=== PATIENT | male | born 1965 | race Hispanic/Latino ===

== ENCOUNTER 2017-10-18 02:11 | Observation (INO) | payer OTHER ==
[2017-10-18] MEDS ORDERED: Aspirin 81 MG Tab.Chew PO ONE (02:16)
--- NOTE | 2017-10-18 02:17 | EDM.PDOC ---
ED HPI GENERAL MEDICAL PROBLEM - General Stated Complaint: SHORTNESS OF BREATH Time Seen by Provider: 10/18/17 02:16 Source of Information: Reports: Patient - History of Present Illness INITIAL COMMENTS - FREE TEXT/NARRATIVE: HISTORY AND PHYSICAL: History of present illness: [Patient presents with exertional shortness of breath only able to ambulate for 20 feet without becoming significantly short of breath he also complains of orthopnea is in no distress no pursed lip breathing No fever nausea vomiting chills sweats no chest pain headache dizziness or palpitation no bowel or urine symptoms Denies chronic medications illness or disease ] Review of systems: As per history of present illness and below otherwise all systems reviewed and negative. Past medical history: As per history of present illness and as reviewed below otherwise noncontributory. Surgical history: As per history of present illness and as reviewed below otherwise noncontributory. Social history: No reported history of drug or alcohol abuse. Family history: As per history of present illness and as reviewed below otherwise noncontributory. Physical exam: HEENT: Atraumatic, normocephalic, pupils reactive, negative for conjunctival pallor or scleral icterus, mucous membranes moist, throat clear, neck supple, nontender, trachea midline. Lungs: Clear to auscultation, breath sounds equal bilaterally, chest nontender. Heart: S1S2, regular, negative for clicks, rubs, or JVD. Abdomen: Soft, nondistended, nontender. Negative for masses or hepatosplenomegaly. Negative for costovertebral tenderness. Pelvis: Stable nontender. Genitourinary: Deferred. Rectal: Deferred. Extremities: Atraumatic, negative for cords or calf pain. Neurovascular unremarkable. 2+ pitting edema Neuro: Awake, alert, oriented. Cranial nerves II through XII unremarkable. Cerebellum unremarkable. Motor and sensory unremarkable throughout. Exam nonfocal. Diagnostics: [CBC CMP troponin BN peptide EKG Chest 1 view ] Therapeutics: [ aspirin 324 mg chewable ]Lasix 40 mg IV Solu-Medrol 125 mg IV DuoNeb Patient admitted observation telemetry Impression: [ shortness of breath 2+ edema ] Orthopnea HyperglycemiaOn a 7 hour random sample Definitive disposition and diagnosis as appropriate pending reevaluation and review of above. - Related Data Allergies Allergy/AdvReac Type Severity Reaction Status Date / Time No Known Allergies Allergy Verified 10/18/17 02:27 Home Meds: Home Meds . [No Known Home Meds] 10/18/17 [History] ED ROS GENERAL - Review of Systems Review Of Systems: See Below ED EXAM, GENERAL - Physical Exam Exam: See Below Course - Vital Signs Last Recorded V/S: Last Vital Signs Temp 97.0 F 10/18/17 04:09 Pulse 81 10/18/17 04:09 Resp 22 H 10/18/17 04:09 BP 142/81 H 10/18/17 04:09 Pulse Ox 94 L 10/18/17 04:09 - Orders/Labs/Meds Orders: Active Orders 24 hr Category Date Time Status EKG Documentation Completion [RC] STAT Care 10/18/17 02:16 Active RT Aerosol Therapy [RC] ASDIRECTED Care 10/18/17 02:24 Active Chest 1V Frontal [CR] Stat Exams 10/18/17 02:16 Taken Sodium Chloride 0.9% [Normal Saline] 1,000 ml Med 10/18/17 02:30 Active IV STAT Medication Orders Sodium Chloride (Normal Saline) 1,000 mls @ 30 mls/hr IV STAT SIOBHAN Last Admin: 10/18/17 02:35 Dose: 30 mls/hr Labs: Laboratory Tests 10/18/17 10/18/17 10/18/17 Range/Units 02:26 02:26 02:26 WBC 5.41 (4.0-11.0) K/uL RBC 4.96 (4.50-5.90) M/uL Hgb 14.9 (13.0-17.0) g/dL Hct 42.3 (38.0-50.0) % MCV 85.3 (80.0-98.0) fL MCH 30.0 (27.0-32.0) pg MCHC 35.2 (31.0-37.0) g/dL RDW Std Deviation 40.7 (28.0-62.0) fl RDW Coeff of Lacie 13 (11.0-15.0) % Plt Count 140 L (150-400) K/uL MPV 10.60 (7.40-12.00) fL Neut % (Auto) 51.3 (48.0-80.0) % Lymph % (Auto) 34.6 (16.0-40.0) % [place] % (Auto) 7.4 (0.0-15.0) % Eos % (Auto) 6.5 (0.0-7.0) % Baso % (Auto) 0.2 (0.0-1.5) % Neut # (Auto) 2.8 (1.4-5.7) K/uL Lymph # (Auto) 1.9 (0.6-2.4) K/uL [place] # (Auto) 0.4 (0.0-0.8) K/uL Eos # (Auto) 0.4 (0.0-0.7) K/uL Baso # (Auto) 0.0 (0.0-0.1) K/uL Nucleated RBC % 0.0 /100WBC Nucleated RBCs # 0 K/uL Sodium 137 (136-148) mmol/L Potassium 3.9 (3.5-5.1) mmol/L Chloride 104 (98-107) mmol/L Carbon Dioxide 24.6 (21.0-32.0) mmol/L BUN 26 H (7.0-18.0) mg/dL Creatinine 1.5 H (0.8-1.3) mg/dL Est Cr Clr Drug Dosing 67.32 mL/min Estimated GFR (MDRD) 49.7 ml/min Glucose 174 H (74-106) mg/dL Calcium 8.8 (8.5-10.1) mg/dL Total Bilirubin 0.4 (0.2-1.0) mg/dL AST 63 H (15-37) IU/L ALT 94 H (14-63) IU/L Alkaline Phosphatase 48 (46-116) U/L Troponin I < 0.050 (0.000-0.056) ng/mL B-Natriuretic Peptide 163 H (<100) PG/ML Total Protein 7.0 (6.4-8.2) g/dL Albumin 3.4 (3.4-5.0) g/dL Globulin 3.6 H (2.0-3.5) g/dL Albumin/Globulin Ratio 0.9 L (1.3-2.8) Meds: Medications Generic Name Dose Route Start Last Admin Trade Name Freq PRN Reason Stop Dose Admin Sodium Chloride 1,000 mls @ 30 mls/hr 10/18/17 02:30 10/18/17 02:35 Normal Saline IV 30 mls/hr STAT SIOBHAN Administration Discontinued Medications Generic Name Dose Route Start Last Admin Trade Name Juan F PRN Reason Stop Dose Admin Albuterol/Ipratropium 3 ml 10/18/17 02:24 10/18/17 02:37 Duoneb 3.0-0.5 Mg/3 Ml NEB 10/18/17 02:25 3 ml ONETIME ONE Administration Aspirin 324 mg 10/18/17 02:16 10/18/17 02:37 Aspirin PO 10/18/17 02:17 324 mg ONETIME ONE Administration Furosemide 40 mg 10/18/17 02:24 10/18/17 02:37 Lasix IVPUSH 10/18/17 02:25 40 mg NOW ONE Administration Methylprednisolone Sodium Succinate 125 mg 10/18/17 02:24 10/18/17 02:37 Solu-Medrol IVPUSH 10/18/17 02:25 125 mg ONETIME ONE Administration Departure - Departure Time of Disposition: 04:16 Disposition: Refer to Observation Condition: Fair Clinical Impression: Edema, Orthopnea, Hyperglycemia - Discharge Information - My Orders Last 24 Hours: My Active Orders 10/18/17 02:16 EKG Documentation Completion [RC] STAT Chest 1V Frontal [CR] Stat 10/18/17 02:24 RT Aerosol Therapy [RC] ASDIRECTED 10/18/17 02:30 Sodium Chloride 0.9% [Normal Saline] 1,000 ml IV STAT - Assessment/Plan Last 24 Hours: My Active Orders 10/18/17 02:16 EKG Documentation Completion [RC] STAT Chest 1V Frontal [CR] Stat 10/18/17 02:24 RT Aerosol Therapy [RC] ASDIRECTED 10/18/17 02:30 Sodium Chloride 0.9% [Normal Saline] 1,000 ml IV STAT
[2017-10-18] MEDS ORDERED: Furosemide 40 MG/4 ML VIAL IVPUSH ONE (02:24)
[2017-10-18] MEDS ORDERED: methylPREDNISolone Sodium Succinate 125 MG/2 ML SDV IVPUSH ONE (02:24)
[2017-10-18] MEDS ORDERED: Albuterol/Ipratropium 3.0-0.5 MG/3 ML Neb Soln NEB ONE (02:24)
[2017-10-18] MEDS ORDERED: Sodium Chloride 0.9% 1,000 ML IV SCH (02:30)
[2017-10-18 03:04] LABS: CHLORIDE,CL 104 mmol/L (98-107); SODIUM,NA 137 mmol/L (136-148)
[2017-10-18] MEDS ORDERED: Sodium Chloride 0.9% 10 ML Syringe FLUSH PRN (06:15)
[2017-10-18] MEDS ORDERED: Sodium Chloride 0.9% 2.5 ML Syringe FLUSH PRN (06:15)
[2017-10-18] MEDS ORDERED: Acetaminophen 325 MG Tab PO PRN (07:47)
[2017-10-18] MEDS ORDERED: Docusate Sodium 100 MG Cap PO PRN (07:47)
[2017-10-18] MEDS ORDERED: Ondansetron 4 MG Tab.DIS PO PRN (07:47)
--- NOTE | 2017-10-18 08:37 | PCM.HP ---
H&P History of Present Illness - General Date of Service: 10/18/17 Admit Problem/Dx: Admission Diagnosis/Problem Admission Diagnosis/Problem Shortness of breath Source of Information: Patient History Limitations: Reports: No Limitations - History of Present Illness Initial Comments - Free Text/Narative: This 51 year old [place] male with little pmh presented to the ED last evening with complaints of exertional dyspnea and trouble sleeping due to shortness of breath. He reports this really has been going on for nearly 2 years and only worsening. He reports he saw a provider in [facility], which is home for him, who did very little work up and sent him home with an inhaler. He is here in [employer] working and has noticed increased shortness of breath with very little activity, not being able to ambulate more that 10-20 feet with out noticing significant shortness of breath. He denies having chest pain. He reports white phlegm. Denies fevers, chills, sore throat or URI symptoms. He reports feeling like his abdomen is full and has swelling that is worsening to his legs. He denies calf pain or tenderness. He denies known history of DM or heart disease. He denies known family history of heart disease. Reports his mother is Diabetic and takes insulin for this. He denies daily or significant alcohol use, only on "special occassions". He denies recreational drug use. He does smoke 1/2 ppd for 35 years. In the ED, CBC WNL. BUN 26, Cr 1.5 Glucose noted to be elevated at 174. AST 63, ALT 94, Troponin negative BNP 163. BP 140/.80s with HR 80-90s. He was given Lasix 40 mg IV and Solumedrol 125 mg IV. CXR obtained revealed cardiac size is upper limits of normal with patchy opacity in R mid to lower lung field representing atelectasis or infection. He was admitted observation for exertional dyspnea. No PCP in town. He is here working in the [employer] 4 weeks on 2 weeks off. His home is in [place], [place]. - Related Data Allergies/Adverse Reactions: Allergies Allergy/AdvReac Type Severity Reaction Status Date / Time No Known Allergies Allergy Verified 10/18/17 04:32 Home Medications: Home Meds . [No Known Home Meds] 10/18/17 [History] Past Medical History - Past Health History Medical/Surgical History: Denies Medical/Surgical History Cardiovascular History: Reports: None. Denies: Afib, Blood Clots/VTE/DVT, Heart Failure, Hypertension, CT Respiratory History: Reports: None. Denies: Asthma, COPD, PE Gastrointestinal History: Reports: None. Denies: GERD, GI Bleed Genitourinary History: Reports: None Musculoskeletal History: Reports: None Neurological History: Reports: None. Denies: CVA, TIA Endocrine/Metabolic History: Reports: None. Denies: Diabetes, Type II, Hypothyroidism Social & Family History - Family History Cardiac: Reports: None. Denies: CAD, Heart Failure, Hypertension, CT Endocrine/Metabolic: Reports: Diabetes, type II (mother) - Tobacco Use Smoking Status *Q: Current Every Day Smoker Years of Tobacco use: 35 Packs/Tins Daily: 0.5 Used Tobacco, but Quit: No - Caffeine Use Caffeine Use: Reports: None - Recreational Drug Use Recreational Drug Use: No H&P Review of Systems - Review of Systems: Review Of Systems: See Below General: Reports: Fatigue (due to inability to sleep well. ). Denies: Fever, Chills, Malaise, Weakness Pulmonary: Reports: Shortness of Breath, Cough, Sputum (white to clear). Denies : Hemoptysis Cardiovascular: Reports: Dyspnea on Exertion, Orthopnea, Edema. Denies: Chest Pain, Palpitations, Syncope Gastrointestinal: Reports: Distension (and bloating). Denies: Abdominal Pain Genitourinary: Reports: No Symptoms. Denies: Dysuria, Frequency, Burning Musculoskeletal: Reports: No Symptoms. Denies: Neck Pain, Joint Pain Skin: Reports: No Symptoms Psychiatric: Reports: No Symptoms Neurological: Reports: No Symptoms Hematologic/Lymphatic: Reports: No Symptoms Immunologic: Reports: No Symptoms Exam - Exam Exam: See Below - Vital Signs Vital Signs: Last Vital Signs Temp 97.1 F 10/18/17 05:00 Pulse 90 10/18/17 05:00 Resp 21 H 10/18/17 05:00 BP 143/90 H 10/18/17 05:00 Pulse Ox 94 L 10/18/17 05:00 Weight: 145.7 kg - Exam Quality Assessment: DVT Prophylaxis. No: Supplemental Oxygen General: Alert, Oriented, Cooperative HEENT: Conjunctiva Clear, Mucosa Moist & [place], Posterior Pharynx Clear Neck: Supple, Trachea Midline, JVD Lungs: Decreased Breath Sounds GI/Abdominal Exam: Normal Bowel Sounds, Soft, No Mass, Other (obese abdomen makes assessment difficult. reports feeling "fullness" to abdomen) Back Exam: Normal Inspection, Full Range of Motion Extremities: Normal Range of Motion, Pedal Edema (+2 pitting edema from hips to feet bilaterally) Neuro Extensive - Mental Status: Alert, Oriented x3 Neuro Extensive - Motor, Sensory, Reflexes: CN II-XII Intact Psychiatric: Alert, Normal Affect, Normal Mood - Patient Data Lab Results Last 24 hrs: Laboratory Results - last 24 hr 10/18/17 10/18/17 10/18/17 Range/Units 02:26 02:26 02:26 WBC 5.41 (4.0-11.0) K/uL RBC 4.96 (4.50-5.90) M/uL Hgb 14.9 (13.0-17.0) g/dL Hct 42.3 (38.0-50.0) % MCV 85.3 (80.0-98.0) fL MCH 30.0 (27.0-32.0) pg MCHC 35.2 (31.0-37.0) g/dL RDW Std Deviation 40.7 (28.0-62.0) fl RDW Coeff of Lacie 13 (11.0-15.0) % Plt Count 140 L (150-400) K/uL MPV 10.60 (7.40-12.00) fL Neut % (Auto) 51.3 (48.0-80.0) % Lymph % (Auto) 34.6 (16.0-40.0) % [place] % (Auto) 7.4 (0.0-15.0) % Eos % (Auto) 6.5 (0.0-7.0) % Baso % (Auto) 0.2 (0.0-1.5) % Neut # (Auto) 2.8 (1.4-5.7) K/uL Lymph # (Auto) 1.9 (0.6-2.4) K/uL [place] # (Auto) 0.4 (0.0-0.8) K/uL Eos # (Auto) 0.4 (0.0-0.7) K/uL Baso # (Auto) 0.0 (0.0-0.1) K/uL Nucleated RBC % 0.0 /100WBC Nucleated RBCs # 0 K/uL Sodium 137 (136-148) mmol/L Potassium 3.9 (3.5-5.1) mmol/L Chloride 104 (98-107) mmol/L Carbon Dioxide 24.6 (21.0-32.0) mmol/L BUN 26 H (7.0-18.0) mg/dL Creatinine 1.5 H (0.8-1.3) mg/dL Est Cr Clr Drug Dosing 67.32 mL/min Estimated GFR (MDRD) 49.7 ml/min Glucose 174 H (74-106) mg/dL POC Glucose (60-110) mg/dL Hemoglobin A1c (4.5-6.2) % Calcium 8.8 (8.5-10.1) mg/dL Total Bilirubin 0.4 (0.2-1.0) mg/dL AST 63 H (15-37) IU/L ALT 94 H (14-63) IU/L Alkaline Phosphatase 48 (46-116) U/L Troponin I < 0.050 (0.000-0.056) ng/mL B-Natriuretic Peptide 163 H (<100) PG/ML Total Protein 7.0 (6.4-8.2) g/dL Albumin 3.4 (3.4-5.0) g/dL Globulin 3.6 H (2.0-3.5) g/dL Albumin/Globulin Ratio 0.9 L (1.3-2.8) 10/18/17 10/18/17 Range/Units 02:26 06:22 WBC (4.0-11.0) K/uL RBC (4.50-5.90) M/uL Hgb (13.0-17.0) g/dL Hct (38.0-50.0) % MCV (80.0-98.0) fL MCH (27.0-32.0) pg MCHC (31.0-37.0) g/dL RDW Std Deviation (28.0-62.0) fl RDW Coeff of Lacie (11.0-15.0) % Plt Count (150-400) K/uL MPV (7.40-12.00) fL Neut % (Auto) (48.0-80.0) % Lymph % (Auto) (16.0-40.0) % [place] % (Auto) (0.0-15.0) % Eos % (Auto) (0.0-7.0) % Baso % (Auto) (0.0-1.5) % Neut # (Auto) (1.4-5.7) K/uL Lymph # (Auto) (0.6-2.4) K/uL [place] # (Auto) (0.0-0.8) K/uL Eos # (Auto) (0.0-0.7) K/uL Baso # (Auto) (0.0-0.1) K/uL Nucleated RBC % /100WBC Nucleated RBCs # K/uL Sodium (136-148) mmol/L Potassium (3.5-5.1) mmol/L Chloride (98-107) mmol/L Carbon Dioxide (21.0-32.0) mmol/L BUN (7.0-18.0) mg/dL Creatinine (0.8-1.3) mg/dL Est Cr Clr Drug Dosing mL/min Estimated GFR (MDRD) ml/min Glucose (74-106) mg/dL POC Glucose 210 H (60-110) mg/dL Hemoglobin A1c 9.4 H (4.5-6.2) % Calcium (8.5-10.1) mg/dL Total Bilirubin (0.2-1.0) mg/dL AST (15-37) IU/L ALT (14-63) IU/L Alkaline Phosphatase (46-116) U/L Troponin I (0.000-0.056) ng/mL B-Natriuretic Peptide (<100) PG/ML Total Protein (6.4-8.2) g/dL Albumin (3.4-5.0) g/dL Globulin (2.0-3.5) g/dL Albumin/Globulin Ratio (1.3-2.8) Result Diagrams: 18 02:26 18 02:26 *Q Meaningful Use (ADM) - VTE Risk Assess *Q Each Risk Factor Represents 1 Point: Age 41 - 59 years, Swollen Legs, Current, Obesity ( BMI > 25 kg/m2) Total Score 1 Point Risk Factors: 3 Each Risk Factor Represents 2 Points: None Total Score 2 Point Risk Factors: 0 Each Risk Factor Represents 3 Points: None Total Score 3 Point Risk Factors: 0 Each Risk Factor Represents 5 Points: None Total Score 5 Point Risk Factors: 0 Venous Thromboembolism Risk Factor Score *Q: 3 - Problem List (1) Orthopnea SNOMED Code(s): 97040595 ICD Code: R06.01 - ORTHOPNEA Status: Acute Current Visit: No (2) Edema SNOMED Code(s): 393019989, 990311922 ICD Code: R60.9 - EDEMA, UNSPECIFIED Status: Acute Current Visit: No Qualifiers: Edema type: generalized Qualified Code(s): R60.1 - Generalized edema (3) New onset type 2 diabetes mellitus SNOMED Code(s): 97789600 ICD Code: E11.9 - TYPE 2 DIABETES MELLITUS WITHOUT COMPLICATIONS Status: Acute Current Visit: Yes (4) Hyperglycemia SNOMED Code(s): 91991940 ICD Code: R73.9 - HYPERGLYCEMIA, UNSPECIFIED Status: Acute Current Visit : No Problem List Initiated/Reviewed/Updated: Yes Orders Last 24hrs: Active Orders 24 hr Category Date Time Status Admission Status [Patient Status] [ADT] Stat ADT 10/18/17 04:17 Active Ambulate [RC] ASDIRECTED Care 10/18/17 07:47 Active Blood Glucose Check, Bedside [RC] TIDMEALS Care 10/18/17 06:01 Active Daily Weight [Height and Weight] [RC] DAILY Care 10/18/17 07:46 Active EKG Documentation Completion [RC] STAT Care 10/18/17 02:16 Active Intake and Output Strict [RC] Q12H Care 10/18/17 07:46 Active Oxygen Therapy [RC] PRN Care 10/18/17 07:47 Active RT Aerosol Therapy [RC] ASDIRECTED Care 10/18/17 02:24 Active Up ad Bessie [RC] ASDIRECTED Care 10/18/17 07:47 Active VTE/DVT Education [RC] PER UNIT ROUTINE Care 10/18/17 07:47 Active Vital Signs [RC] Q4H Care 10/18/17 07:47 Active ADA Diabetic [[place] [employer] Diet] [DIET Diet 10/18/17 Breakfast Active ] Chest 1V Frontal [CR] Stat Exams 10/18/17 02:16 Taken Echo Comp wo Cont [US] Urgent Exams 10/18/17 07:45 Ordered CBC WITH AUTO DIFF [HEME] AM Lab 10/19/17 05:11 Ordered CBC WITH AUTO DIFF [HEME] AM Lab 10/20/17 05:11 Ordered CBC WITH AUTO DIFF [HEME] AM Lab 10/21/17 05:11 Ordered COMPREHENSIVE METABOLIC PN,CMP [CHEM] AM Lab 10/19/17 05:11 Ordered COMPREHENSIVE METABOLIC PN,CMP [CHEM] AM Lab 10/20/17 05:11 Ordered COMPREHENSIVE METABOLIC PN,CMP [CHEM] AM Lab 10/21/17 05:11 Ordered LIPID PANEL [CHEM] AM Lab 10/20/17 05:11 Ordered Acetaminophen [Tylenol] Med 10/18/17 07:47 Active 650 mg PO Q4H PRN Docusate Sodium [Colace] Med 10/18/17 07:47 Active 100 mg PO BID PRN Heparin Sodium Med 10/18/17 08:00 Active 5,000 units SUBCUT Q12H Ondansetron [Zofran ODT] Med 10/18/17 07:47 Active 4 mg PO Q4H PRN Sodium Chloride 0.9% [Saline Flush] Med 10/18/17 06:15 Active 10 ml FLUSH ASDIRECTED PRN Sodium Chloride 0.9% [Saline Flush] Med 10/18/17 06:15 Active 2.5 ml FLUSH ASDIRECTED PRN Convert IV to Saline Lock [OM.PC] Routine Oth 10/18/17 06:00 Ordered Resuscitation Status Routine Resus Stat 10/18/17 07:47 Ordered Medication Orders Acetaminophen (Tylenol) 650 mg PO Q4H PRN PRN Reason: Pain (mild 1-3) Docusate Sodium (Colace) 100 mg PO BID PRN PRN Reason: Constipation Heparin Sodium (Porcine) (Heparin Sodium) 5,000 units SUBCUT Q12H SIOBHAN Ondansetron HCl (Zofran Odt) 4 mg PO Q4H PRN PRN Reason: nausea, able to take PO Sodium Chloride (Saline Flush) 10 ml FLUSH ASDIRECTED PRN PRN Reason: Keep Vein Open Sodium Chloride (Saline Flush) 2.5 ml FLUSH ASDIRECTED PRN PRN Reason: Keep Vein Open Assessment/Plan Comment:: This 51 year old male admitted with exertional dyspnea and orthopnea 1. Exertional dyspnea, orthopnea, BLE pitting edema: Continues to report both this morning. Will obtain ECHO to evaluate for possible heart failure. Will schedule Lasix 40 mg IV daily. BUN/Cr elevated. Will monitor. Obtain Lipid panel in am. Will need ischemic workup as outpatient including stress test, Will arrange follow up with cardiology. 2. New onset DM: Elevated BS noted on admission, A1c obtained which is 9.4. Will monitor BS with meals and place on Novolog SSI. Will need to monitor renal function to determine if Metformin may be used. Will consult clinical educator. VTE prophylaxis: Heparin Q12h Dispo: 2-3 days pending improvement.
[2017-10-18] MEDS: Heparin Sodium 5,000 Units/ML Vial SUBCUT SCH ×2 (09:40→21:38)
[2017-10-18] MEDS: Furosemide 40 MG/4 ML VIAL IVPUSH SCH (09:46)
[2017-10-18] MEDS ORDERED: Insulin Aspart 100 Units/ML 3 ML Pen SUBCUT SCH (11:30)
--- NOTE | 2017-10-18 13:22 | CR ---
EXAM DATE: 10/18/17 PATIENT'S AGE: 51 Patient: NOEMI GALINDO Facility: [place], [place] Site . Site : [id number] Study: XRay Chest [id number]/12/2018 2:55:19 AM Ordering Physician: Doctor Alcala Final Report: Indication: Chest pain, shortness of breath Technique: Chest 1 view Comparison: None Findings/Impression: Cardiac size upper limits of normal. Patchy opacity in the right mid to lower lung field may represent atelectasis or infection. No pneumothorax or effusion. Osseous structures appear intact. Dictated by Corrina Malik MD @ Oct 18 2017 3:15AM (Electronic Signature) Report Signed by Proxy. DENIS
[2017-10-18] MEDS: Insulin Aspart 100 Units/ML 3 ML Pen SUBCUT SCH (17:07)
[2017-10-19] MEDS: Insulin Aspart 100 Units/ML 3 ML Pen SUBCUT SCH (08:31)
[2017-10-19] MEDS: Heparin Sodium 5,000 Units/ML Vial SUBCUT SCH (08:45)
[2017-10-19] MEDS ORDERED: Furosemide 40 MG Tab PO ONE (10:27)
--- NOTE | 2017-10-19 10:33 | PCM.DCSUM1 ---
Discharge Summary - Hospital Course Brief History: This 51 year old [place] male with little pmh presented to the ED last evening with complaints of exertional dyspnea and trouble sleeping due to shortness of breath. He reports this really has been going on for nearly 2 years and only worsening. He reports he saw a provider in [facility], which is home for him, who did very little work up and sent him home with an inhaler. He is here in [place] working and has noticed increased shortness of breath with very little activity, not being able to ambulate more that 10-20 feet with out noticing significant shortness of breath. He denies having chest pain. He reports white phlegm. Denies fevers, chills, sore throat or URI symptoms. He reports feeling like his abdomen is full and has swelling that is worsening to his legs. He denies calf pain or tenderness. He denies known history of DM or heart disease. He denies known family history of heart disease. Reports his mother is Diabetic and takes insulin for this. He denies daily or significant alcohol use, only on "special occassions". He denies recreational drug use. He does smoke 1/2 ppd for 35 years. In the ED, CBC WNL. BUN 26, Cr 1.5 Glucose noted to be elevated at 174. AST 63, ALT 94, Troponin negative BNP 163. BP 140/.80s with HR 80-90s. He was given Lasix 40 mg IV and Solumedrol 125 mg IV. CXR obtained revealed cardiac size is upper limits of normal with patchy opacity in R mid to lower lung field representing atelectasis or infection. He was admitted observation for exertional dyspnea. No PCP in town. He is here working in the [employer] 4 weeks on 2 weeks off. His home is in [place], [place]. - Discharge Data Discharge Date: 10/19/17 Discharge Disposition: Home, Self-Care 01 Condition: Good - Discharge Diagnosis/Problem(s) (1) Orthopnea SNOMED Code(s): 93474223 ICD Code: R06.01 - ORTHOPNEA Status: Acute Current Visit: No (2) Edema SNOMED Code(s): 072880459, 191139817 ICD Code: R60.9 - EDEMA, UNSPECIFIED Status: Acute Current Visit: No Qualifiers: Edema type: generalized Qualified Code(s): R60.1 - Generalized edema (3) New onset type 2 diabetes mellitus SNOMED Code(s): 44870355 ICD Code: E11.9 - TYPE 2 DIABETES MELLITUS WITHOUT COMPLICATIONS Status: Acute Current Visit: Yes (4) Hyperglycemia SNOMED Code(s): 05164481 ICD Code: R73.9 - HYPERGLYCEMIA, UNSPECIFIED Status: Acute Current Visit : No - Patient Summary/Data Consults: Consultations 10/18/17 08:51 Consult to Library Specialist [Consult to Diabetic Nurse Specialist] [CONS] Routine - Patient Instructions Diet: Heart Healthy Diet, Low Sodium, Diabetic Diet Activity: As Tolerated, No Strenuous Activities Showering/Bathing: May Shower Notify Provider of: Fever, Increased Pain, Swelling and Redness, Drainage, Nausea and/or Vomiting Other/Special Instructions: Daily weights, please monitor weights daily and inform PCP if weights elevate 2-3 lbs over 3-5 days. Quit smoking - Discharge Plan Prescriptions/Med Rec: Aspirin 81 mg PO DAILY #30 tab.chew metFORMIN HCl [Metformin HCl] 1,000 mg PO BID #60 tablet Home Medications: Home Meds Aspirin 81 mg PO DAILY #30 tab.chew 10/19/17 [Rx] metFORMIN HCl [Metformin HCl] 1,000 mg PO BID #60 tablet 10/19/17 [Rx] Patient Handouts: Shortness of Breath, Adult, Vmeh-ev-Codc, Heart-Healthy Eating Plan, [id number], Metformin tablets, Heart Failure, Orch-bg-Ftlp, Aspirin, ASA oral tablets Referrals: [facility] [Outside] Laura Hermosillo MD [Physician] - 11/14/17 3:00 pm Carlitos Chen MD [Resident] - 11/14/17 2:30 pm - Discharge Summary/Plan Comment DC Time >30 min.: No Discharge Summary/Plan Comment: Discharge Diagnoses: Dyspnea/Orthopnea- resolved New onset Dm Type 2 Obesity Faa was admitted and treated for dyspnea and orthopnea. He was treated with IV lasix 40 mg IV daily, he diuresed well and is feeling better today. ECHO was obtained but returned with suboptimal imaging and Electrical Design Technologist who read the ECHo recommended repeat as outpatient and possibly with contrast. There was possible LV systolic dysfunction, but again, imaging was poor. He was educated on low salt diet and heart healthy diet as well. BP today is well controlled with no medications. He was noted to have new onset DM type 2 with A1c 9.4. He requested no insulin and would like to try oral medications first. He was visited by DM educator and given instructions on diet and monitoring BS. He will be prescribed Metformin 500 mg BID x 1 week and then to increase it to 1000 mg BID. He will be heading home to [facility], but wants follow up here. He will not be back to [place] until 2nd week in November and will not agree to follow up prior to that and miss work. He was encouraged to monitor diet for salt and carbs. He is to monitor daily weights and to notify PCP if weight does start to increase or edema/shortness of breath worsens. He will be arranged with outpatient stress test and may also benefit from outpatient sleep study as well. He is to return to the ED or clinic if shortness of breath, chest pain or orthopnea returns. He was HIGHLY encouraged to stop smoking. Denies wanting assistance with medication or patches as this time. - General Info Date of Service: 10/19/17 Admission Dx/Problem (Free Text: Admission Diagnosis/Problem Admission Diagnosis/Problem Shortness of breath Subjective Update: Doing much better today. No chest pain, orthopnea and dyspnea gone. He was able to sleep on his back last night, the first time in a long time he reports. Requesting discharge home today. No other concerns. Functional Status: Reports: Pain Controlled, Tolerating Diet, Ambulating, Urinating - Review of Systems General: Reports: No Symptoms. Denies: Fever, Weakness, Fatigue HEENT: Reports: No Symptoms. Denies: Glasses, Headaches, Sore Throat, Visual Changes Pulmonary: Reports: No Symptoms. Denies: Shortness of Breath, Cough, Sputum Cardiovascular: Reports: No Symptoms. Denies: Chest Pain, Palpitations, Edema Gastrointestinal: Reports: No Symptoms. Denies: Abdominal Pain, Nausea, Vomiting Genitourinary: Reports: No Symptoms Neurological: Reports: No Symptoms Psychiatric: Reports: No Symptoms - Patient Data Vitals - Most Recent: Last Vital Signs Temp 97.8 F 10/19/17 08:00 Pulse 85 10/19/17 08:00 Resp 16 10/19/17 08:00 BP 125/70 10/19/17 08:00 Pulse Ox 95 10/19/17 08:00 Weight - Most Recent: 145.5 kg I&O - Last 24 hours: Intake & Output 10/18/17 10/19/17 10/19/17 22:59 06:59 14:59 Intake Total 1920 1000 Output Total 4700 1600 Balance -2780 -600 Lab Results - Last 24 hrs: Laboratory Results - last 24 hr 10/18/17 10/18/17 10/19/17 Range/Units 11:24 15:59 04:34 WBC 11.25 H (4.0-11.0) K/uL RBC 4.98 (4.50-5.90) M/uL Hgb 14.7 (13.0-17.0) g/dL Hct 42.5 (38.0-50.0) % MCV 85.3 (80.0-98.0) fL MCH 29.5 (27.0-32.0) pg MCHC 34.6 (31.0-37.0) g/dL RDW Std Deviation 40.7 (28.0-62.0) fl RDW Coeff of Lacie 13 (11.0-15.0) % Plt Count 173 (150-400) K/uL MPV 10.90 (7.40-12.00) fL Neut % (Auto) 80.0 (48.0-80.0) % Lymph % (Auto) 12.1 L (16.0-40.0) % [place] % (Auto) 7.7 (0.0-15.0) % Eos % (Auto) 0.1 (0.0-7.0) % Baso % (Auto) 0.1 (0.0-1.5) % Neut # (Auto) 9.0 H (1.4-5.7) K/uL Lymph # (Auto) 1.4 (0.6-2.4) K/uL [place] # (Auto) 0.9 H (0.0-0.8) K/uL Eos # (Auto) 0.0 (0.0-0.7) K/uL Baso # (Auto) 0.0 (0.0-0.1) K/uL Nucleated RBC % 0.0 /100WBC Nucleated RBCs # 0 K/uL Sodium (136-148) mmol/L Potassium (3.5-5.1) mmol/L Chloride (98-107) mmol/L Carbon Dioxide (21.0-32.0) mmol/L BUN (7.0-18.0) mg/dL Creatinine (0.8-1.3) mg/dL Est Cr Clr Drug Dosing mL/min Estimated GFR (MDRD) ml/min Glucose (74-106) mg/dL POC Glucose 306 H 350 H (60-110) mg/dL Calcium (8.5-10.1) mg/dL Total Bilirubin (0.2-1.0) mg/dL AST (15-37) IU/L ALT (14-63) IU/L Alkaline Phosphatase (46-116) U/L Total Protein (6.4-8.2) g/dL Albumin (3.4-5.0) g/dL Globulin (2.0-3.5) g/dL Albumin/Globulin Ratio (1.3-2.8) Triglycerides (0-200) mg/dL Cholesterol (50-200) mg/dL LDL Cholesterol, Calc (60-180) mg/dL VLDL Cholesterol (5-55) mg/dL HDL Cholesterol (40-60) mg/dL Cholesterol/HDL Ratio (3.3-6.0) 10/19/17 10/19/17 10/19/17 Range/Units 04:34 05:10 06:06 WBC (4.0-11.0) K/uL RBC (4.50-5.90) M/uL Hgb (13.0-17.0) g/dL Hct (38.0-50.0) % MCV (80.0-98.0) fL MCH (27.0-32.0) pg MCHC (31.0-37.0) g/dL RDW Std Deviation (28.0-62.0) fl RDW Coeff of Lacie (11.0-15.0) % Plt Count (150-400) K/uL MPV (7.40-12.00) fL Neut % (Auto) (48.0-80.0) % Lymph % (Auto) (16.0-40.0) % [place] % (Auto) (0.0-15.0) % Eos % (Auto) (0.0-7.0) % Baso % (Auto) (0.0-1.5) % Neut # (Auto) (1.4-5.7) K/uL Lymph # (Auto) (0.6-2.4) K/uL [place] # (Auto) (0.0-0.8) K/uL Eos # (Auto) (0.0-0.7) K/uL Baso # (Auto) (0.0-0.1) K/uL Nucleated RBC % /100WBC Nucleated RBCs # K/uL Sodium 138 (136-148) mmol/L Potassium 3.9 (3.5-5.1) mmol/L Chloride 103 (98-107) mmol/L Carbon Dioxide 27.3 (21.0-32.0) mmol/L BUN 27 H (7.0-18.0) mg/dL Creatinine 1.5 H (0.8-1.3) mg/dL Est Cr Clr Drug Dosing 67.32 mL/min Estimated GFR (MDRD) 49.7 ml/min Glucose 248 H (74-106) mg/dL POC Glucose 208 H (60-110) mg/dL Calcium 9.2 (8.5-10.1) mg/dL Total Bilirubin 0.7 (0.2-1.0) mg/dL AST 41 H (15-37) IU/L ALT 81 H (14-63) IU/L Alkaline Phosphatase 44 L (46-116) U/L Total Protein 6.8 (6.4-8.2) g/dL Albumin 3.2 L (3.4-5.0) g/dL Globulin 3.6 H (2.0-3.5) g/dL Albumin/Globulin Ratio 0.9 L (1.3-2.8) Triglycerides 74 (0-200) mg/dL Cholesterol 173 (50-200) mg/dL LDL Cholesterol, Calc 116 (60-180) mg/dL VLDL Cholesterol 14 (5-55) mg/dL HDL Cholesterol 42 (40-60) mg/dL Cholesterol/HDL Ratio 4.1 (3.3-6.0) Med Orders - Current: Current Medications Acetaminophen (Tylenol) 650 mg PO Q4H PRN PRN Reason: Pain (mild 1-3) Docusate Sodium (Colace) 100 mg PO BID PRN PRN Reason: Constipation Furosemide (Lasix) 40 mg IVPUSH DAILY [facility] Last Admin: 10/18/17 09:46 Dose: 40 mg Heparin Sodium (Porcine) (Heparin Sodium) 5,000 units SUBCUT Q12H [facility] Last Admin: 10/19/17 08:45 Dose: 5,000 units Insulin Aspart (Novolog) 0 unit SUBCUT TIDAC [facility]; Protocol Last Admin: 10/19/17 08:31 Dose: 4 units Ondansetron HCl (Zofran Odt) 4 mg PO Q4H PRN PRN Reason: nausea, able to take PO Sodium Chloride (Saline Flush) 10 ml FLUSH ASDIRECTED PRN PRN Reason: Keep Vein Open Sodium Chloride (Saline Flush) 2.5 ml FLUSH ASDIRECTED PRN PRN Reason: Keep Vein Open Last Admin: 10/18/17 09:51 Dose: 2.5 ml Discontinued Medications Albuterol/Ipratropium (Duoneb 3.0-0.5 Mg/3 Ml) 3 ml NEB ONETIME ONE Stop: 10/18/17 02:25 Last Admin: 10/18/17 02:37 Dose: 3 ml Aspirin (Aspirin) 324 mg PO ONETIME ONE Stop: 10/18/17 02:17 Last Admin: 10/18/17 02:37 Dose: 324 mg Furosemide (Lasix) 40 mg IVPUSH NOW ONE Stop: 10/18/17 02:25 Last Admin: 10/18/17 02:37 Dose: 40 mg Sodium Chloride (Normal Saline) 1,000 mls @ 30 mls/hr IV STAT [facility] Last Admin: 10/18/17 02:35 Dose: 30 mls/hr Insulin Aspart (Novolog) 0 unit SUBCUT TIDAC [facility]; Protocol Last Admin: 10/18/17 12:16 Dose: 4 units Methylprednisolone Sodium Succinate (Solu-Medrol) 125 mg IVPUSH ONETIME ONE Stop: 10/18/17 02:25 Last Admin: 10/18/17 02:37 Dose: 125 mg - Exam Quality Assessment: Denies: Supplemental Oxygen General: Reports: Alert, Oriented, Cooperative, No Acute Distress Lungs: Reports: Clear to Auscultation, Normal Respiratory Effort Cardiovascular: Reports: Regular Rate, Regular Rhythm GI/Abdominal Exam: Normal Bowel Sounds, Soft, Non-Tender, No Abnormal Bruit Back Exam: Reports: Normal Inspection, Full Range of Motion Extremities: Normal Inspection, Normal Range of Motion, Non-Tender, Normal Capillary Refill, Pedal Edema (scant to +1 pitting edema to BLE, much improved from yesterday.) Neurological: Reports: No New Focal Deficit Psy/Mental Status: Reports: Alert, Normal Affect, Normal Mood
[2017-10-19] MEDS: Furosemide 40 MG/4 ML VIAL IVPUSH SCH (11:20)
--- NOTE | 2017-10-20 13:57 | ECHO ---
EXAM DATE: 10/18/17 PATIENT'S AGE: 51 The echocardiogram report can be seen in this patient's EMR (Electronic Medical Record) in the Reports section. The report has also been scanned into PACs. DENIS
== END 2017-10-19 10:50 | disposition home or self-care (01) ==
LOC: MW.ED 02:11 → MW.MS 04:17 → UNDODISOB 10-19 10:50
PROVIDERS: ADMIT Internal Medicine; ATTEND Internal Medicine
DX: R06.01 Orthopnea (principal); R06.00 Dyspnea, unspecified; E11.65 Type 2 diabetes mellitus with hyperglycemia; R60.9 Edema, unspecified; F17.210 Nicotine dependence, cigarettes, uncomplicated; E66.9 Obesity, unspecified
CPT/HCPCS: 36415; 71045; 80053; 80061; 82962; 83036; 83880; 84484; 85025; 93005; 93306; 96361; 96374; 96375; 99285; A9270; J1644; J1815; J1940; J2930; J7040; 96372; 96376; 99283; G0378

== ENCOUNTER 2018-05-23 05:29 | Emergency (ER) | payer OTHER ==
--- NOTE | 2018-05-23 05:49 | EDM.PDOC ---
ED HPI GENERAL MEDICAL PROBLEM - General Chief Complaint: Lower Extremity Injury/Pain Stated Complaint: LEFT ANKLE PAIN Time Seen by Provider: 05/23/18 05:49 Source of Information: Reports: Patient - History of Present Illness INITIAL COMMENTS - FREE TEXT/NARRATIVE: HISTORY AND PHYSICAL: History of present illness: [Patient with gout presents with left ankle pain that began a couple of days ago insidiously 6 out of 10 nonradiating pain denies trauma Edition a D and a bag of oranges when symptoms began ] Review of systems: As per history of present illness and below otherwise all systems reviewed and negative. Past medical history: As per history of present illness and as reviewed below otherwise noncontributory. Surgical history: As per history of present illness and as reviewed below otherwise noncontributory. Social history: No reported history of drug or alcohol abuse. Family history: As per history of present illness and as reviewed below otherwise noncontributory. Physical exam: HEENT: Atraumatic, normocephalic, pupils reactive, negative for conjunctival pallor or scleral icterus, mucous membranes moist, throat clear, neck supple, nontender, trachea midline. Lungs: Clear to auscultation, breath sounds equal bilaterally, chest nontender. Heart: S1S2, regular, negative for clicks, rubs, or JVD. Abdomen: Soft, nondistended, nontender. Negative for masses or hepatosplenomegaly. Negative for costovertebral tenderness. Pelvis: Stable nontender. Genitourinary: Deferred. Rectal: Deferred. Extremities: Atraumatic, negative for cords or calf pain. Neurovascular unremarkable. Neuro: Awake, alert, oriented. Cranial nerves II through XII unremarkable. Cerebellum unremarkable. Motor and sensory unremarkable throughout. Exam nonfocal. Diagnostics: []CBC uric acid Left ankle complete Therapeutics: [Prednisone 20 mg by mouth now Indomethacin 25 mg by mouth now ] stop allopurinol Impression: [] acute gout Definitive disposition and diagnosis as appropriate pending reevaluation and review of above. left ankle Pain Score (Numeric/FACES): 8 - Related Data Allergies Allergy/AdvReac Type Severity Reaction Status Date / Time No Known Allergies Allergy Verified 05/23/18 05:32 Home Meds: Home Meds Aspirin 81 mg PO DAILY #30 tab.chew 10/19/17 [Rx] metFORMIN HCl [Metformin HCl] 1,000 mg PO BID #60 tablet 10/19/17 [Rx] Past Medical History - Past Health History Medical/Surgical History: Denies Medical/Surgical History Cardiovascular History: Reports: Bypass, DC Other Cardiovascular History: Reports quadruple bypass Respiratory History: Reports: None Gastrointestinal History: Reports: None Genitourinary History: Reports: None Musculoskeletal History: Reports: None Neurological History: Reports: None Endocrine/Metabolic History: Reports: Diabetes, Type II, Obesity/BMI 30+ Social & Family History - Family History Family Medical History: Noncontributory Cardiac: Reports: None Endocrine/Metabolic: Reports: Diabetes, type II - Tobacco Use Smoking Status *Q: Never Smoker - Caffeine Use Caffeine Use: Reports: None - Recreational Drug Use Recreational Drug Use: No Review of Systems - Review of Systems Review Of Systems: See Below ED EXAM, GENERAL - Physical Exam Exam: See Below Course - Vital Signs Last Recorded V/S: Last Vital Signs Temp 97.5 F 05/23/18 05:30 Pulse 84 05/23/18 05:30 Resp 16 05/23/18 05:30 BP 129/90 05/23/18 05:30 Pulse Ox 96 05/23/18 05:30 - Orders/Labs/Meds Orders: Active Orders 24 hr Category Date Time Status Ankle Min 3V Lt [CR] Stat Exams 05/23/18 05:34 Taken Labs: Laboratory Tests 05/23/18 05/23/18 Range/Units 05:50 05:50 WBC 9.42 (4.0-11.0) K/uL RBC 4.60 (4.50-5.90) M/uL Hgb 13.7 (13.0-17.0) g/dL Hct 40.1 (38.0-50.0) % MCV 87.2 (80.0-98.0) fL MCH 29.8 (27.0-32.0) pg MCHC 34.2 (31.0-37.0) g/dL RDW Std Deviation 41.9 (28.0-62.0) fl RDW Coeff of Lacie 13 (11.0-15.0) % Plt Count 222 (150-400) K/uL MPV 11.00 (7.40-12.00) fL Neut % (Auto) 72.5 (48.0-80.0) % Lymph % (Auto) 17.4 (16.0-40.0) % [place] % (Auto) 9.0 (0.0-15.0) % Eos % (Auto) 1.0 (0.0-7.0) % Baso % (Auto) 0.1 (0.0-1.5) % Neut # (Auto) 6.8 H (1.4-5.7) K/uL Lymph # (Auto) 1.6 (0.6-2.4) K/uL [place] # (Auto) 0.9 H (0.0-0.8) K/uL Eos # (Auto) 0.1 (0.0-0.7) K/uL Baso # (Auto) 0.0 (0.0-0.1) K/uL Nucleated RBC % 0.0 /100WBC Nucleated RBCs # 0 K/uL Uric Acid 12.9 H (2.6-7.2) mg/dL Meds: Medications Discontinued Medications Generic Name Dose Route Start Last Admin Trade Name Freq PRN Reason Stop Dose Admin Indomethacin 25 mg 05/23/18 06:30 Indocin PO 05/23/18 06:31 ONETIME ONE Prednisone 20 mg 05/23/18 06:29 Prednisone PO 05/23/18 06:30 ONETIME ONE Departure - Departure Time of Disposition: 06:36 Disposition: Home, Self-Care 01 Condition: Good Clinical Impression: Acute gout - Discharge Information Referrals: PCP,None [Primary Care Provider] - Forms: ED Department Discharge Additional Instructions: Stop allopurinol Medications as prescribed Return if symptoms persist or worsen Follow-up with primary care in 2 weeks Gout diet as discussed [facility] [address] [place] [address] The following information is given to patients seen in the emergency department who are being discharged to home. This information is to outline your options for follow-up care. We provide all patients seen in our emergency department with a follow-up referral. The need for follow-up, as well as the timing and circumstances, are variable depending upon the specifics of your emergency department visit. If you don't have a primary care physician on staff, we will provide you with a referral. We always advise you to contact your personal physician following an emergency department visit to inform them of the circumstance of the visit and for follow-up with them and/or the need for any referrals to a consulting specialist. The emergency department will also refer you to a specialist when appropriate. This referral assures that you have the opportunity for follow-up care with a specialist. All of these measure are taken in an effort to provide you with optimal care, which includes your follow-up. Under all circumstances we always encourage you to contact your private physician who remains a resource for coordinating your care. When calling for follow-up care, please make the office aware that this follow-up is from your recent emergency room visit. If for any reason you are refused follow-up, please contact the [facility] emergency department at and asked to speak to the emergency department charge nurse. - My Orders Last 24 Hours: My Active Orders 05/23/18 05:34 Ankle Min 3V Lt [CR] Stat - Assessment/Plan Last 24 Hours: My Active Orders 05/23/18 05:34 Ankle Min 3V Lt [CR] Stat
[2018-05-23] MEDS ORDERED: predniSONE 20 MG Tab PO ONE (06:29)
[2018-05-23] MEDS ORDERED: Indomethacin 25 MG Cap PO ONE (06:30)
--- NOTE | 2018-05-23 11:27 | CR ---
EXAM DATE: 05/23/18 PATIENT'S AGE: 52 Patient: NOEMI GALINDO Facility: [place], [place] Site . Site : [id number] Study: XRay Extremity Left ankle-05/23/2018 5:59:40 AM Ordering Physician: Doctor Alcala Final Report: Indication: Left ankle pain Technique: Left ankle 3 views Comparison: None Findings: Bones: Alignment is normal. No fractures or bone lesions. Joint spaces: Joint spaces are well maintained. No degenerative changes. Soft tissues: Unremarkable. Impression: No findings to explain pain. Dictated by Adebayo Jarrell MD @ May 23 2018 6:10AM (Electronic Signature) Report Signed by Proxy. DENIS
== END 2018-05-23 06:45 | disposition home or self-care (01) ==
LOC: MW.ED 05:29
DX: M10.9 Gout, unspecified (principal); E11.9 Type 2 diabetes mellitus without complications; I25.2 Old myocardial infarction; Z98.890 Other specified postprocedural states; Z79.82 Long term (current) use of aspirin; Z79.84 Long term (current) use of oral hypoglycemic drugs
CPT/HCPCS: 36415; 73610; 84550; 85025; 99283; A9270